=== PATIENT | male | born 1955 ===

== ENCOUNTER 2017-03-31 20:38 | Emergency (ER) | payer MEDICARE ==
[2017-03-31 20:38] VITALS: BMI 30.2
[2017-03-31 20:42] VITALS: BP 179/105; PULSE 94; RESP 18; TEMP 98; O2SAT 95
--- NOTE | 2017-03-31 20:56 | ED PDOC ---
HPI: Psych/Substance Abuse Time Seen by Provider: 03/31/17 20:48 Chief Complaint (Nursing): Alcohol Ingestion Chief Complaint (Provider): intoxication Additional Complaint(s): 61yo M in ER for eval of intoxication-found on street publicly intoxicated. in ER with slurred speech and unstable gait. Past Medical History Reviewed: Historical Data, Nursing Documentation, Vital Signs Vital Signs: Last Vital Signs Temp 98.0 F 03/31/17 20:40 Pulse 94 H 03/31/17 20:40 Resp 18 03/31/17 20:40 BP 179/105 H 03/31/17 20:40 Pulse Ox 95 03/31/17 20:40 - Medical History PMH: HTN, Hypercholesterolemia Denies: Diabetes, Hepatitis, HIV, Seizures, Sexually Transmitted Disease - Family History Family History: States: Unknown Family Hx - Immunization History Hx Tetanus Toxoid Vaccination: No Hx Influenza Vaccination: No Hx Pneumococcal Vaccination: No - Home Medications Home Medications: Ambulatory Orders Medication Instructions Recorded Lisinopril 40 mg PO DAILY 03/27/16 Lisinopril [Zestril] 40 mg PO DAILY #30 tab 08/16/16 chlordiazePOXIDE [Librium] 25 mg PO BID #2 cap 08/16/16 traZODone [Desyrel] 50 mg PO HS PRN #30 tab 08/16/16 - Allergies Allergies/Adverse Reactions: Allergies Allergy/AdvReac Type Severity Reaction Status Date / Time No Known Allergies Allergy Verified 03/27/16 05:47 Review of Systems ROS Statement: Except As Marked, All Systems Reviewed And Found Negative Constitutional: Negative for: Fever Physical Exam - Reviewed Nursing Documentation Reviewed: Yes Vital Signs Reviewed: Yes - Physical Exam Appears: Positive for: No Acute Distress. Negative for: Non-toxic ( intoxicated. alcohol noted on breath) Head Exam: Positive for: ATRAUMATIC, NORMAL INSPECTION, NORMOCEPHALIC Skin: Positive for: Normal Color, Warm, DRY Eye Exam: Positive for: EOMI, Normal appearance, PERRL Cardiovascular/Chest: Positive for: Regular Rate, Rhythm Respiratory: Positive for: CNT, Normal Breath Sounds Neurologic/Psych: Positive for: Alert, Oriented - ECG O2 Sat by Pulse Oximetry: 95 - Progress ED Course And Treament: pt will stay in ER until clinically sober. Medical Decision Making Medical Decision Making: family is here to assist pt and bring home. family is dependable and sober Disposition - Clinical Impression Clinical Impression: Alcohol abuse - Patient ED Disposition Is Patient to be Admitted: No - Disposition Disposition: Routine/Home Disposition Time: 22:29 Condition: STABLE Instructions: Alcohol Intoxication (ED) Forms: [facility] ([place])
== END 2017-03-31 22:35 | disposition home or self-care (01) ==
LOC: H.ER 20:38
DX: F10.10 Alcohol abuse, uncomplicated (principal); E78.00 Pure hypercholesterolemia, unspecified; I10 Essential (primary) hypertension